=== PATIENT | male | born 1955 | race Caucasian/White ===

== ENCOUNTER 2016-11-29 16:29 | Inpatient (IN) | payer OTHER ==
[2016-11-29] MEDS ORDERED: SODIUM CHLORIDE 0.9% 1,000 ML IV ONE (17:02)
[2016-11-29] MEDS ORDERED: VANCOMYCIN INJ 2 GM in SODIUM CHLORIDE 0.9% 500 ML IV STA (17:02)
[2016-11-29] MEDS ORDERED: MORPHINE 2 MG/ML SYRINGE IVP STA (17:03)
[2016-11-29] MEDS ORDERED: MORPHINE 10 MG/ML VIAL ONE (17:06)
[2016-11-29] MEDS ORDERED: VANCOMYCIN 1 GM VIAL ONE (17:11)
[2016-11-29] MEDS ORDERED: HYDROmorphone 1 MG/ML SYRINGE IVP STA ×2 (17:52→18:57)
[2016-11-29] MEDS ORDERED: HYDROmorphone 1 MG/ML SYRINGE ONE ×2 (17:52→19:07)
[2016-11-29] MEDS ORDERED: PIPERACILLIN/TAZOBACTAM 4.5 GM in SODIUM CHLORIDE 0.9% MINIBAG 100 ML IV STA (17:58)
[2016-11-29] MEDS ORDERED: PIPERACILLIN/TAZOBACTAM 3.375 GM in SODIUM CHLORIDE 0.9% MINIBAG 100 ML IV SCH (19:51)
[2016-11-29] MEDS ORDERED: ONDANSETRON 4 MG/2 ML VIAL IVP PRN (19:51)
[2016-11-29] MEDS ORDERED: VANCOMYCIN PER PHARMACY 1 GM in SODIUM CHLORIDE 0.9% 250 ML IV SCH (19:51)
[2016-11-29] MEDS ORDERED: SODIUM CHLORIDE 0.9% 500 ML IV ONE (20:36)
[2016-11-29] MEDS: HYDROmorphone 2 MG TABLET PO PRN (20:39)
[2016-11-29] MEDS: ACETAMINOPHEN 325 MG TABLET PO PRN (20:39)
[2016-11-29] MEDS: INSULIN ASPART 300 UNIT/3 ML PEN SUBQ SCH (21:10)
[2016-11-29] MEDS: SODIUM CHLORIDE 0.9% 1,000 ML IV SCH (21:19)
[2016-11-29] MEDS: MORPHINE ER 15 MG TABLET PO SCH (21:37)
[2016-11-29] MEDS: SODIUM CHLORIDE FLUSH 0.9% 10 ML SYRINGE IVP SCH (21:38)
[2016-11-30] MEDS: HYDROmorphone 1 MG/ML SYRINGE IVP PRN ×2 (00:26→21:24)
[2016-11-30] MEDS: ACETAMINOPHEN 325 MG TABLET PO PRN ×2 (00:26→08:28)
[2016-11-30] MEDS ORDERED: SODIUM CHLORIDE 0.9% 500 ML IV ONE (01:47)
[2016-11-30] MEDS: PIPERACILLIN/TAZOBACTAM 3.375 GM in SODIUM CHLORIDE 0.9% MINIBAG 100 ML IV SCH ×4 (02:09→21:25)
[2016-11-30] MEDS: MORPHINE ER 15 MG TABLET PO SCH ×3 (07:05→21:37)
[2016-11-30] MEDS: PANTOPRAZOLE 40 MG TABLET PO SCH (07:10)
[2016-11-30] MEDS: SODIUM CHLORIDE FLUSH 0.9% 10 ML SYRINGE IVP SCH ×3 (07:28→21:38)
[2016-11-30] MEDS: VANCOMYCIN INJ 2 GM in SODIUM CHLORIDE 0.9% 500 ML IV SCH ×2 (07:28→17:03)
[2016-11-30] MEDS: TAMSULOSIN 0.4 MG CAPSULE PO SCH (08:28)
[2016-11-30] MEDS: POLYETHYLENE GLYCOL 3350 17 GM PACKET PO SCH (08:28)
[2016-11-30] MEDS: SODIUM CHLORIDE 0.9% 1,000 ML IV SCH ×2 (08:42→22:53)
[2016-11-30] MEDS: INSULIN ASPART 300 UNIT/3 ML PEN SUBQ SCH ×4 (08:43→21:25)
[2016-11-30] MEDS: POTASSIUM CITRATE 5 MEQ TABLET PO SCH ×2 (14:49→21:24)
[2016-11-30] MEDS: HYDROmorphone 2 MG TABLET PO PRN (16:52)
[2016-11-30] MEDS: MULTIVITAMIN TABLET PO SCH (16:52)
[2016-11-30] MEDS: RIVAROXABAN 10 MG TABLET PO SCH (21:24)
[2016-11-30] MEDS: INSULIN GLARGINE 300 UNIT/3 ML PEN SUBQ SCH (21:31)
[2016-12-01] MEDS: HYDROmorphone 2 MG TABLET PO PRN ×3 (01:57→20:28)
[2016-12-01] MEDS: PIPERACILLIN/TAZOBACTAM 3.375 GM in SODIUM CHLORIDE 0.9% MINIBAG 100 ML IV SCH ×4 (01:57→21:30)
[2016-12-01] MEDS: MORPHINE ER 15 MG TABLET PO SCH ×3 (06:23→21:28)
[2016-12-01] MEDS: POTASSIUM CITRATE 5 MEQ TABLET PO SCH ×3 (06:23→21:28)
[2016-12-01] MEDS: SODIUM CHLORIDE FLUSH 0.9% 10 ML SYRINGE IVP SCH ×3 (06:23→21:29)
[2016-12-01] MEDS: SODIUM CHLORIDE FLUSH 0.9% 10 ML SYRINGE IVP PRN ×2 (06:24→19:23)
[2016-12-01] MEDS: PANTOPRAZOLE 40 MG TABLET PO SCH (06:24)
[2016-12-01] MEDS: VANCOMYCIN INJ 2 GM in SODIUM CHLORIDE 0.9% 500 ML IV SCH ×2 (06:24→19:21)
[2016-12-01] MEDS ORDERED: CALCIUM GLUCONATE 1,000 MG in SODIUM CHLORIDE 0.9% 50 ML IV ONE (07:53)
[2016-12-01] MEDS: MULTIVITAMIN TABLET PO SCH (07:56)
[2016-12-01] MEDS: TAMSULOSIN 0.4 MG CAPSULE PO SCH (07:56)
[2016-12-01] MEDS: INSULIN ASPART 300 UNIT/3 ML PEN SUBQ SCH ×4 (07:56→20:30)
[2016-12-01] MEDS: POLYETHYLENE GLYCOL 3350 17 GM PACKET PO SCH (08:19)
[2016-12-01] MEDS: RIVAROXABAN 10 MG TABLET PO SCH (20:28)
[2016-12-01] MEDS: INSULIN GLARGINE 300 UNIT/3 ML PEN SUBQ SCH (20:29)
[2016-12-02] MEDS: HYDROmorphone 1 MG/ML SYRINGE IVP PRN (00:58)
[2016-12-02] MEDS: SODIUM CHLORIDE FLUSH 0.9% 10 ML SYRINGE IVP SCH (00:59)
[2016-12-02] MEDS: PIPERACILLIN/TAZOBACTAM 3.375 GM in SODIUM CHLORIDE 0.9% MINIBAG 100 ML IV SCH ×2 (02:50→09:16)
[2016-12-02] MEDS: VANCOMYCIN INJ 2 GM in SODIUM CHLORIDE 0.9% 500 ML IV SCH (06:38)
[2016-12-02] MEDS: MORPHINE ER 15 MG TABLET PO SCH (06:38)
[2016-12-02] MEDS: PANTOPRAZOLE 40 MG TABLET PO SCH (06:38)
[2016-12-02] MEDS: POTASSIUM CITRATE 5 MEQ TABLET PO SCH (06:39)
[2016-12-02] MEDS: INSULIN ASPART 300 UNIT/3 ML PEN SUBQ SCH ×2 (08:02→11:46)
[2016-12-02] MEDS: POLYETHYLENE GLYCOL 3350 17 GM PACKET PO SCH (08:24)
[2016-12-02] MEDS: TAMSULOSIN 0.4 MG CAPSULE PO SCH (08:24)
[2016-12-02] MEDS: MULTIVITAMIN TABLET PO SCH (08:24)
[2016-12-02] MEDS: SODIUM CHLORIDE FLUSH 0.9% 10 ML SYRINGE IVP PRN (09:16)
== END 2016-12-02 12:39 | disposition home or self-care (01) | DRG 603 ==
DX: L03.116 Cellulitis of left lower limb (principal); E87.2 Acidosis; Z68.42 Body mass index [BMI] 45.0-49.9, adult; R78.81 Bacteremia; E11.65 Type 2 diabetes mellitus with hyperglycemia; E66.01 Morbid (severe) obesity due to excess calories; M17.0 Bilateral primary osteoarthritis of knee; G89.4 Chronic pain syndrome; I87.2 Venous insufficiency (chronic) (peripheral); Z86.718 Personal history of other venous thrombosis and embolism; Z79.01 Long term (current) use of anticoagulants; Z86.711 Personal history of pulmonary embolism; Z79.84 Long term (current) use of oral hypoglycemic drugs; Z87.442 Personal history of urinary calculi; Z98.890 Other specified postprocedural states